=== PATIENT | male | born 1945 | race Two or more races ===

== ENCOUNTER 2022-11-27 21:02 | Emergency (ER) | payer BC ==
[~2022-11-27] VITALS: Ht 182.9 cm; Wt 94.5 kg
[2022-11-27] MEDS ORDERED: cefTRIAXone SOD 1,000 MG VL IM ONE (22:30)
[2022-11-27] MEDS ORDERED: CLIN300C8 PO (23:10)
[2022-11-27] MEDS ORDERED: LIDOCAINE 1% HCL (LOCAL ANESTH.) INJ 20ML MDV ONE (23:18)
[2022-11-27 23:24] VITALS: BP 154/87
== END 2022-11-27 23:45 | disposition home or self-care (01) ==
LOC: ER 21:02
DX: L03.115 Cellulitis of right lower limb (principal)
CPT/HCPCS: 96372; 99283; J0696; J2001

== ENCOUNTER 2022-11-30 10:29 | Emergency (ER) | payer BC ==
[~2022-11-30] VITALS: Ht 180.3 cm; Wt 94.5 kg
[~2022-11-30 10:29] MED LIST: CLIN300C8 PO
[2022-11-30 12:55] LABS: Basophils # (auto) 0 10 ^3/uL (0-0.2); Basophils % (auto) 0.3 % (0.0-2.0); Eosinophils # (auto) 0.1 10 ^3/uL (0-0.8); Eosinophils % (auto) 1.3 % (0.0-7.0); Hematocrit 40.7 % (41.0-53.0); Hemoglobin 13.7 g/dL (13.5-17.5); Lymphocytes # (auto) 1.7 10 ^3/uL (0.4-5.4); Lymphocytes % (auto) 26.6 % (10.0-50.0); Mean Corpuscular Hemoglobin 31.2 pg (28.0-32.0); Mean Corpuscular Hgb Conc. 33.7 g/dL (32.0-36.0); Mean Corpuscular Volume 92.6 fL (80.0-100.0); Monocytes # (auto) 0.6 10 ^3/uL (0-1.3); Monocytes % (auto) 9.7 % (0.0-12.0); Neutrophils % (auto) 62.1 % (37.0-80.0); Red Cell Distribution Width 13.8 % (11.8-14.3); White Blood Cell 6.4 10^3/uL (4.4-10.8)
[2022-11-30 13:48] LABS: Potassium 4.6 mmol/L (3.5-5.1)
[2022-11-30 13:56] LABS: Bilirubin, Total 0.4 mg/dL (0.2-1.0); CRP High Sensitivity 0.23 mg/dL (< 0.3); Calcium 9.1 mg/dL (8.5-10.1); Total Protein 7.3 g/dL (6.4-8.2)
[2022-11-30] MEDS ORDERED: DexAMETHasone SOD PHOS 10MG/1ML VIAL INJ IV ONE (14:45)
[2022-11-30] MEDS ORDERED: CEPH-510 PO (14:57)
[2022-11-30 15:37] VITALS: BP 137/77
== END 2022-11-30 15:44 | disposition home or self-care (01) ==
LOC: ER 10:29
DX: L03.115 Cellulitis of right lower limb (principal)
CPT/HCPCS: 36415; 73610; 73630; 80053; 85025; 85652; 86141; 87040; 96374; 99284; J1100

== ENCOUNTER 2024-06-04 06:55 | Day surgery (SDC) | payer OTHER ==
[2024-06-04] VITALS (10 sets, daily range): BP systolic 93–130; BP diastolic 48–93; PULSE 78–84; RESP 11–17; TEMP 97.2; O2SAT 93–98
[~2024-06-04] VITALS: Ht 182.9 cm; Wt 90.7 kg
[~2024-06-04 06:55] MED LIST changes: +ATOR20TA50 PO; -CLIN300C8 PO; +FINA5TAB4 PO; +GABA-1250 PO; +IBUP-1454 PO; +LISI20TA56 PO; +MELA1TAB25 PO; +ROPI5TAB20 PO; +TAMS0.4C39 PO
[2024-06-04] MEDS ORDERED: IODIXANOL 320MG/ML 100ML BTL IV ONE ×2 (07:23→07:42)
[2024-06-04] MEDS ORDERED: VERAPAMIL 2.5MG/ML INJ 2ML VIAL IV ONE (08:52)
[2024-06-04] MEDS ORDERED: HEPARIN SODIUM (PORCINE) 5000 UNITS/ML 1ML VIAL ONE (08:52)
[2024-06-04] MEDS ORDERED: fentaNYL CITRATE 100 MCG/2 ML VL ONE (08:52)
[2024-06-04] MEDS ORDERED: ANGIOMAX 250 MG VIAL IV ONE (08:52)
[2024-06-04] MEDS ORDERED: MIDAZOLAM HCL 2MG/2ML 2ml VIAL (1mg/ml) ONE (08:53)
[2024-06-04] MEDS ORDERED: LIDOCAINE 2%HCL (LOCAL ANESTH.) INJ 20ML MDV ONE (08:53)
[2024-06-04] MEDS ORDERED: SODIUM CHL 0.9% 0 ML ONE (08:53)
== END 2024-06-04 12:35 | disposition home or self-care (01) ==
LOC: CATH 06:55
PROVIDERS: ATTEND Internal Medicine
DX: R94.39 Abnormal result of other cardiovascular function study (principal); I25.118 Atherosclerotic heart disease of native coronary artery with other forms of angina pectoris; I25.82 Chronic total occlusion of coronary artery; R00.0 Tachycardia, unspecified; I25.119 Atherosclerotic heart disease of native coronary artery with unspecified angina pectoris
CPT/HCPCS: 93458; C1769; C1894; J1644; J2250; J3010; Q9967; 99152

== ENCOUNTER 2024-10-24 08:06 | Inpatient (IN) | payer OTHER ==
[~2024-10-24] VITALS: Ht 182.9 cm; Wt 78.0 kg
[2024-10-24 08:37] VITALS: PULSE 114; RESP 18; O2SAT 89
[2024-10-24 08:58] LABS: Hematocrit 35.9 % (41.0-53.0); Hemoglobin 12.6 g/dL (13.5-17.5); Mean Corpuscular Hemoglobin 32.2 pg (28.0-32.0); Mean Corpuscular Hgb Conc. 35.2 g/dL (32.0-36.0); Mean Corpuscular Volume 91.2 fL (80.0-100.0); Platelet Count (auto) 166 10^3/uL (140-450); Red Blood Cells 3.93 10^6/uL (4.5-5.90); Red Cell Distribution Width 14.2 % (11.8-14.3); White Blood Cell 2.4 10^3/uL (4.4-10.8)
--- NOTE | 2024-10-24 09:02 | ED.PDOC ---
History of Present Illness HPI Comments 79M BIBA w/ no prior Hx associated to the c/c of /D. Pt reports on having /D for 4 days and cough, w/ each day having to use the restroom 6 times. Pt notes that the /D is watery. EMS note that the pt informed them that he was recently diagnosed w/ left bundle branch block. PMHx of High Lipids, HTN, Baby Aspirin. SHx of Appendectomy and Tonsillectomy. Denies chills, fever, N/V, Blood, SOB and CP or no other associated symptom's, modifiers, recent injuries or sick contact at this time. Chief Complaint: General Weakness Time Seen by MD: 08:25 Primary Care Provider: Kira Davenport Notes: Nurses Notes, Rack Pusher Notes, Medications, Allergies Allergies: Coded Allergies: NO KNOWN ALLERGIES (Unverified , 05/30/24) Home Meds Reported Medications Melatonin (Melatonin) 10 Mg Tab, 10 MG PO DAILY for INSOMNIA, TAB 05/30/24 Ibuprofen (Ibuprofen) 600 Mg Tab, 600 MG PO PRN for ACHY LEGS, MG 0 Refills 05/30/24 Finasteride (Finasteride) 5 Mg Tab, 5 MG PO DAILY for BPH, MG 05/30/24 Tamsulosin Hcl (Tamsulosin Hcl) 0.4 Mg Cap, 0.4 MG PO QPM for BPH for 30 Days, MG 05/30/24 Gabapentin (Gabapentin) 300 Mg Cap, 300 MG PO DAILY for NEUROPATHY, MG 05/30/24 Ropinirole Hydrochloride (Ropinirole Hcl) 0.25 Mg Tab, 0.25 MG PO TID for RESTLESS LEGS, TAB 05/30/24 Lisinopril (Lisinopril) 20 Mg Tab, 20 MG PO DAILY for HTN for 30 Days, MG 05/30/24 Atorvastatin Calcium (ATORVASTATIN CALCIUM) 20 Mg Tab, 1 TAB PO DAILY for HIGH CHOLESTEROL, #30 TAB 5 Refills 05/30/24 Information Source: Patient, Emergency Med Personnel Mode of Arrival: EMS Severity: Moderate Timing: Days Duration: Since onset, Days Prehospital treatment: None Past Medical History PAST MEDICAL HISTORY: High Lipids, HTN Past Medical History (Other): Baby Aspirin Surgical History: Appendectomy, Tonsillectomy Family History Family History: Reviewed,noncontributory to illness, Unknown Social History Smoker: Non-Smoker Alcohol: Denies ETOH Use Drugs: Denies Drug Use Lives In: Home Constitutional: denies: chills, diaphoresis, fatigue, fever, malaise, sweats, weakness, others EENTM: denies: blurred vision, double vision, ear bleeding, ear discharge, ear drainage, ear pain, ear ringing, eye pain, eye redness, hearing loss, mouth pain, mouth swelling, nasal discharge, nose bleeding, nose congestion, nose pain, photophobia, tearing, throat pain, throat swelling, voice changes, others Respiratory: denies: cough, hemoptysis, orthopnea, SOB at rest, shortness of breath, SOB with excertion, stridor, wheezing, others Cardiovascular: denies: chest pain, dizzy spells, diaphoresis, Dyspnea on exertion, edema, irregular heart beat, left arm pain, lightheadedness, palpitations, PND, syncope, others Gastrointestinal: reports: diarrhea; denies: abdomen distended, abdominal pain, blood streaked bowels, constipated, dysphagia, difficulty swallowing, hematemesis, melena, nausea, poor appetite, poor fluid intake, rectal bleeding, rectal pain, vomiting, others Genitourinary: denies: burning, dysuria, flank pain, frequency, hematuria, incontinence, penile discharge, penile sore, pain, testicle pain, testicle swelling, urgency, others Neurological: denies: dizziness, fainting, headache, left sided numbness, left sided weakness, numbness, paresthesia, pre-existing deficit, right sided numbness, right sided weakness, seizure, speech problems, tingling, tremors, weakness, others Musculoskeletal: denies: back pain, gout, joint pain, joint swelling, muscle pain, muscle stiffness, neck pain, others Integumetry: denies: bruises, change in color, change in hair/nails, dryness, laceration, lesions, lumps, rash, wounds, others Allergic/Immunocompromised: denies: Difficulty Healing, Frequent Infections, Hi ves, Itching, others Hematologic/Lymphatic: denies: anemia, blood clots, easy bleeding, easy bruising, swollen glands, others Endocrine: denies: excessive hunger, excessive sweating, excessive thirst, excessive urination, flushing, intolerance to cold, intolerance to heat, unexplained weight gain, unexplained weight loss, others Psychiatric: denies: anxiety, bipolar disorder, depression, hopeless, panic disorder, schizophrenia, sleepless, suicidal, others All Other Systems: Reviewed and Negative Physical Exam General Appearance: Moderate Distress, Normal HEENT: Normal ENT Inspection, Pharynx Normal, TMs Normal Neck: Full Range of Motion, Non-Tender, Normal, Normal Inspection Respiratory: Chest Non-Tender, Lungs Clear, No Accessory Muscle Use, No Respiratory Distress, Normal Breath Sounds Cardiovascular: No Edema, No JVD, No Murmur, No Gallop, Normal Peripheral Pulses, Regular Rate/Rhythm Breast Exam: Deferred Gastrointestinal: Distended, No Organomegaly, Non Tender, No Pulsatile Mass, Normal Bowel Sounds, Soft Genitalia: Deferred Pelvic: Deferred Rectal: Deferred Extremities: No calf tenderness, Normal capillary refill, Normal inspection, Normal range of motion, Non-tender, No pedal edema Musculoskeletal : Apperance: Normal Neurologic: Alert, diagnostic technologist II-XII nml as Tested, No Motor Deficits, Normal Affect, Normal Mood, No Sensory Deficits Cerebellar Function: NOT DONE Reflexes: NOT DONE Skin: Dry, Normal Color, Warm Peripheral Pulses: 3+ Radial (R), 3+ Radial (L) Lymphatic: No Adenopathy Was a procedure done? Was a procedure done?: No Differential Dx Considerations may include: Gastroenteritis Electrolyte imbalance X-Ray, Labs, Meds, VS Vital Signs Date Time Temp Pulse Resp B/P (MAP) Pulse Ox O2 Delivery O2 Flow Rate FiO2 10/24/24 13:00 98 10 108/61 (77) 96 10/24/24 12:00 97.9 100 11 92/33 (52) 97 97.9 10/24/24 12:00 99 10/24/24 09:18 104 10/24/24 08:37 114 18 89 Room Air* 0 21 10/24/24 08:37 98.4 114 20 86/53 (64) 91 98.4 10/24/24 08:15 121 10/24/24 08:14 99.0 120 24 140/67 (91) 94 Lab Test 10/24/24 12:50 10/24/24 08:45 Range/Units Lactic Acid Level 1.3 0.4-2.0 mmol/L White Blood Count 2.4 L 4.4-10.8 10^3/uL Red Blood Count 3.93 L 4.5-5.90 10^6/uL Hemoglobin 12.6 L 13.5-17.5 g/dL Hematocrit 35.9 L 41.0-53.0 % Mean Corpuscular Volume 91.2 80.0-100.0 fL Mean Corpuscular Hemoglobin 32.2 H 28.0-32.0 pg Mean Corpuscular Hemoglobin Concent 35.2 32.0-36.0 g/dL Red Cell Distribution Width 14.2 11.8-14.3 % Platelet Count 166 140-450 10^3/uL Mean Platelet Volume 7.8 6.9-10.8 fL Neutrophils (%) (Auto) 37.0-80.0 % Lymphocytes (%) (Auto) 10.0-50.0 % Monocytes (%) (Auto) 0.0-12.0 % Basophils (%) (Auto) 0.0-2.0 % Neutrophils # (Auto) 1.6-8.6 10 ^3/uL Lymphocytes # (Auto) 0.4-5.4 10 ^3/uL Monocytes # (Auto) 0-1.3 10 ^3/uL Differential Total Cells Counted 100.0 100 Neutrophils % (Manual) 33 L 37.0-80.0 Band Neutrophils % (Manual) 0 Lymphocytes % (Manual) 19 10.0-50.0 Monocytes % (Manual) 40 H 0-12 Eosinophils % (Manual) 1 0-7 Basophils % (Manual) 0 0.0-2.0 Metamyelocytes % (manual) 0 Myelocytes % (Manual) 0 Promyelocytes % (Manual) 0 Blast Cells % (Manual) 7 Reactive Lymphocytes 0 Platelet Estimate Adequate Sodium Level 136 136-145 mmol/L Potassium Level 4.1 3.5-5.1 mmol/L Chloride Level 102 98-107 mmol/L Carbon Dioxide Level 23 20-31 mmol/L Anion Gap 11 5-15 Blood Urea Nitrogen 24 H 9-23 mg/dL Creatinine 0.89 0.700-1.30 mg/dL Glomerular Filtration Rate Calc 87 >90 mL/min BUN/Creatinine Ratio 27.0 H 10.0-20.0 Serum Glucose 131 H 74-106 mg/dL Calcium Level 9.9 8.7-10.4 mg/dL Current Medications Medications (Trade) Dose Ordered Sig/Kristin Route Start Time Stop Time Status Last Admin Sodium Chloride 1,000 ml @ 1,000 mls/hr Q1H ONCE IV 10/24/24 08:45 10/24/24 09:44 DC 10/24/24 09:53 Ceftriaxone Sodium 50 ml @ 100 mls/hr ONCE ONCE IV 10/24/24 12:15 10/24/24 12:44 DC 10/24/24 12:42 Azithromycin 250 ml @ 125 mls/hr ONCE ONCE IV 10/24/24 12:15 10/24/24 14:14 DC 10/24/24 12:42 Sodium Chloride 1,000 ml @ 1,000 mls/hr Q1H ONCE IV 10/24/24 12:15 10/24/24 13:14 DC 10/24/24 12:42 Sodium Chloride 1,000 ml @ 150 mls/hr Q6H40M ONCE IV 10/24/24 12:15 10/24/24 18:54 10/24/24 13:02 Patient alert. Complaining of abdominal discomfort along with diarrhea. CT scan of the abdomen reviewed does show ileus. Vitals stable. Answering all questions. Was given Rocephin. Was given azithromycin. Blood pressure was low. Was given fluids. Was given Flagyl. Abdomen is soft. Spoke with hospitalist. Explained to the patient. Continue to monitor. EKG does show left bundle branch block. Time of 1ST Reevaluation: 08:55 Reevaluation 1ST: Unchanged Patient Education/Counseling: Diagnosis, Treatment, Prognosis Family Education/Counseling: No Family Present Departure 1 Departure Time of Disposition: 17:12 Impression: Primary Impression: Diarrhea Qualified Codes: R19.7 - Diarrhea, unspecified Additional Impressions: Ileus Left bundle branch block Disposition: ADMITTED INPATIENT Admit to: Med Surg Condition: Guarded Critical Care Note Critical Care Time?: No Stability Stability form required: No Heart Score Heart Score: Heart Score Response (Comments) Value History Slightly Suspicious 0 EKG Normal 0 Age >65 2 Risk Factors >3 or Hx ASHD 2 Troponin Normal limit 0 Total 4 I personally scribed for SANGEETHA MCGINNIS MD ([email or web address]) on 10/24/24 at 09:02. Electronically submitted by Farhad Ramos ([email or web address]). SANGEETHA MCGINNIS MD Oct 24, 2024 09:02
[2024-10-24 09:04] LABS: Chloride 102 mmol/L (98-107); Potassium 4.1 mmol/L (3.5-5.1); Sodium 136 mmol/L (136-145)
[2024-10-24 09:05] LABS: Anion Gap 11 (5-15); Carbon Dioxide 23 mmol/L (20-31)
[2024-10-24 09:06] LABS: Calcium 9.9 mg/dL (8.7-10.4)
[2024-10-24 09:07] LABS: Band Neutrophils % (manual) 0; Basophils % (manual) 0 (0.0-2.0); Metamyelocytes % 0; Myelocytes % 0; Promyelocytes % 0; Reactive Lymphocytes 0
[2024-10-24 09:12] LABS: Blood Urea Nitrogen 24 mg/dL (9-23); Glucose 131 mg/dL (74-106)
--- NOTE | 2024-10-24 09:19 | ECG ---
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
[2024-10-24 09:30] LABS: Blast Cells 7; Eosinophils % (manual) 1 (0-7); Lymphocytes % (manual) 19 (10.0-50.0); Monocytes % (manual) 40 (0-12); Platelet Estimate Adequate
[2024-10-24] MEDS: SODIUM CHLORIDE 0.9% 1,000 ML IV ONE ×3 (09:53→13:02)
--- NOTE | 2024-10-24 09:53 | DVH ---
Procedure: CT CT AB PEL WO CON-NO ORAL OR IV 10/24/2024 08:58 AM Indication: distended Comparison Study: None Technique: Axial images were obtained and reformatted in coronal and sagittal planes. All CT scans at this medical facility are performed using dose modulation techniques as appropriate to a performed e xam including the following: Automated exposure control was utilized; adjustment of the MA and/or KV according to patient size; and use of iterative reconstruction technique. CT Dose: CTDI volume is 19. 46 mGy. Dose-length product is 1266.94 mGy*cm FINDINGS: Lower Chest: Bibasilar subsegmental atelectasis is noted. Hepatobiliary: A 1 cm cyst is seen in the liver. Hepatic steatosis. No intrahepatic or extrahepatic d uctal dilatation. No calcified gallstone. No gallbladder wall thickening. Spleen: Unremarkable. Pancreas: Unremarkable. Adrenal Glands: Unremarkable. tract: The kidneys are normal in size bilaterally without hydronephrosis or nephrolithiasis. The u rinary bladder is unremarkable. GI tract: The stomach is grossly normal in appearance. Distended proximal small bowel loops measuring up to 3.8 cm in caliber with no transition point identified. Scattered colonic diverticula are noted without evidence of diverticulitis. The appendix is not visualized. No inflammatory change is noted in the right lower quadrant. Lymphatics: No mesenteric, retroperitoneal or periportal lymphadenopathy. Vasculature: The abdominal aorta is normal in caliber. Diffuse calcified plaque formation is noted. Pelvic Organs: Unremarkable Bones/soft tissues: No acute abnormality. Degenerative changes of the lumbar spine noted. Small fat-c ontaining umbilical hernia. Other: None. IMPRESSION: 1. Dilated jejunal loops without mural thickening with no definite transition point that may represen t ileus or developing obstruction. Recommend clinical and biochemical correlation if clinically indic ated further evaluation with small-bowel series with the water-soluble contrast.Hepatic steatosis. 2. Small right hepatic lobe cyst.
[2024-10-24] MEDS: AZITHROMYCIN 500MG/ 250ML 250 ML IV ONE (12:42)
[2024-10-24] MEDS: cefTRIAXone 1GM/50ML D5W 50 ML IV ONE (12:42)
[2024-10-24] MEDS ORDERED: NITROGLYCERIN 0.4 MG SL TAB SL PRN (13:30)
[2024-10-24] MEDS ORDERED: MORPHINE SULFATE INJ 2 MG/ml SYRG IV PRN (13:30)
[2024-10-24] MEDS ORDERED: ONDANSETRON HCL 4 MG/2 ML VIAL IV PRN (13:30)
--- NOTE | 2024-10-24 13:34 | DVHHP2 ---
History of Present Illness Reason for Visit: Generalized weakness and Diarrhea History of Present Illness 79M BIBA w/ no prior Hx associated to the c/c of /D. Pt reports on having /D for 4 days and cough, w/ each day having to use the restroom 6 times. Pt notes that the /D is watery. EMS note that the pt informed them that he was recently diagnosed w/ left bundle branch block. PMHx of High Lipids, HTN, Baby Aspirin. SHx of Appendectomy and Tonsillectomy. Denies chills, fever, N/V, Blood, SOB and CP or no other associated symptom's, modifiers, recent injuries or sick contact at this time. In the ER he was noted to be hypotensive with a tachycardia. He was also noted to be leukopenic. Patient received fluids however blood pressure remained low normal range. Therefore he is being admitted to the hospital for further evaluation management of his diarrhea with the hypotension and tachycardia. Patient denies any hematemesis or hematochezia. No recent travel. No recent antibiotic use. His other review of systems reviewed normal. Past Medical History High Lipids, HTN and BPH Past Surgical History Appendectomy, Tonsillectomy Family History: Hyperlipidemia, Hypertension Smoke: No ALCOHOL: rare Lives: with Family Review of Systems Review of Systems No hematochezia or hematemesis. No fevers chills or sweats. No headache. No chest pain or shortness for breath. Other review of systems reviewed normal. Allergies: Coded Allergies: NO KNOWN ALLERGIES (Unverified , 05/30/24) Medications Current Medications Medications Dose Ordered Sig/Kristin Route Start Time Stop Time Status Last Admin Dose Admin Nitroglycerin 0.4 mg Q5MINP PRN SL 10/24/24 13:30 UNV Morphine Sulfate 2 mg Q30M PRN IV 10/24/24 13:30 UNV Sodium Chloride 1,000 ml @ 125 mls/hr Q8H IV 10/24/24 13:30 UNV Ceftriaxone Sodium 50 ml @ 100 mls/hr DAILY@09 IV 10/25/24 09:00 UNV Metronidazole 100 ml @ 100 mls/hr Q8HR IV 10/24/24 14:00 UNV Ondansetron HCl 4 mg Q4HPRN PRN IV 10/24/24 13:30 UNV Famotidine 20 mg Q12HR IV 10/24/24 22:00 UNV Exam Vital Signs Vital Signs Date Time Temp Pulse Resp B/P (MAP) Pulse Ox O2 Delivery O2 Flow Rate FiO2 10/24/24 13:00 98 10 108/61 (77) 96 10/24/24 12:00 97.9 97.9 10/24/24 08:37 Room Air* 0 21 Exam Elderly gentleman comfortable lying in bed without any acute distress. HEENT neck supple no JVD pupils equal round reactive to light. Heart regular rate and rhythm mild tachycardia S1 plus S2 without murmurs. Lungs fair air movement chest tube will expansion. No audible wheezes or rales. Abdomen is distended, tympanic to palpation. Positive active bowel sounds. No rebound or guarding noted. Nontender to palpation. Extremities no edema. Positive distal pedal pulses. Labs/Xrays Labs Test 10/24/24 12:50 10/24/24 08:45 Range/Units White Blood Count 2.4 L 4.4-10.8 10^3/uL Red Blood Count 3.93 L 4.5-5.90 10^6/uL Hemoglobin 12.6 L 13.5-17.5 g/dL Hematocrit 35.9 L 41.0-53.0 % Mean Corpuscular Volume 91.2 80.0-100.0 fL Mean Corpuscular Hemoglobin 32.2 H 28.0-32.0 pg Mean Corpuscular Hemoglobin Concent 35.2 32.0-36.0 g/dL Red Cell Distribution Width 14.2 11.8-14.3 % Platelet Count 166 140-450 10^3/uL Mean Platelet Volume 7.8 6.9-10.8 fL Neutrophils (%) (Auto) 37.0-80.0 % Lymphocytes (%) (Auto) 10.0-50.0 % Monocytes (%) (Auto) 0.0-12.0 % Basophils (%) (Auto) 0.0-2.0 % Neutrophils # (Auto) 1.6-8.6 10 ^3/uL Lymphocytes # (Auto) 0.4-5.4 10 ^3/uL Monocytes # (Auto) 0-1.3 10 ^3/uL Differential Total Cells Counted 100.0 100 Neutrophils % (Manual) 33 L 37.0-80.0 Band Neutrophils % (Manual) 0 Lymphocytes % (Manual) 19 10.0-50.0 Monocytes % (Manual) 40 H 0-12 Eosinophils % (Manual) 1 0-7 Basophils % (Manual) 0 0.0-2.0 Metamyelocytes % (manual) 0 Myelocytes % (Manual) 0 Promyelocytes % (Manual) 0 Blast Cells % (Manual) 7 Reactive Lymphocytes 0 Platelet Estimate Adequate Sodium Level 136 136-145 mmol/L Potassium Level 4.1 3.5-5.1 mmol/L Chloride Level 102 98-107 mmol/L Carbon Dioxide Level 23 20-31 mmol/L Anion Gap 11 5-15 Blood Urea Nitrogen 24 H 9-23 mg/dL Creatinine 0.89 0.700-1.30 mg/dL Glomerular Filtration Rate Calc 87 >90 mL/min BUN/Creatinine Ratio 27.0 H 10.0-20.0 Serum Glucose 131 H 74-106 mg/dL Calcium Level 9.9 8.7-10.4 mg/dL Assessment/Plan Assessment/Plan Acute gastroenteritis versus colitis. diarrhea rule out infectious etiology Dehydration Hypotension secondary to diarrhea BPH Hypertension Continue IV fluids. We will send stool for stool cultures and C diff. Start h im on empiric IV antibiotics. Follow the labs. Hold blood pressure medications given low normal blood pressure. Pain and nausea medications. Supportive care and treatment. Resume his prostate medications. Otherwise continue rest of supportive care and treatment. His further clinical management per clinical course and pending evaluations and study results. Plan discussed with: Patient, Other My Orders Orders - SERGEI GAMBLE MD Procedure Category Date Status Time Admit ADMIT 10/24/24 Transmitted 13:29 Clear Liq Diet DIET 10/24/24 Transmitted Lunch Comprehensive LAB 10/25/24 Verified Metabolic Panel 04:00 Complete Blood Count LAB 10/25/24 Verified 04:00 Nitroglycerin PHA 10/24/24 Logged Sublingual (Ntrostat 13:30 Morphine Sulfate PHA 10/24/24 Logged Injection 13:30 Stat Ekg For Chest JOLIE 10/24/24 In Process Pain 13:29 Notify Of Changes JOLIE 10/24/24 In Process From Base 13:29 Sales Market Leader For JOLIE 10/24/24 In Process 24 Hours 13:29 Emergency Dysrhythmia JOLIE 10/24/24 In Process Protocol 13:29 Rhythm Strips Once JOLIE 10/24/24 In Process Every Shift 13:29 Oxygen By Nasal RT 10/24/24 Transmitted Cannula 13:29 NS PHA 10/24/24 Transmitted 13:30 Ceftriaxone Ivpb PHA 10/25/24 Transmitted Rocephin 09:00 Metronidazole Ivpb PHA 10/24/24 Transmitted Flagyl 14:00 Ondansetron Hcl PHA 10/24/24 Transmitted (Zofran) 13:30 Famotidine Injection PHA 10/24/24 Transmitted (Pepcid Injection) 22:00 Finasteride Tablet PHA 10/25/24 Transmitted (Proscar Tablet) 10:00 Tamsulosin PHA 10/24/24 Transmitted Hydrochloride (Flomax) 18:00 Stool Bacterial PINA 10/24/24 Verified Culture 13:31 Stool Wbc LAB 10/24/24 Verified 13:31 Clostridium Difficile PINA 10/24/24 Verified Toxin 13:31 SERGEI GAMBLE MD Oct 24, 2024 13:34
--- NOTE | 2024-10-24 14:06 | ECG ---
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
[2024-10-24] MEDS: metroNIDAZOLE 500MG/100ML 100 ML IV ONE (16:15)
[2024-10-24] MEDS: SODIUM CHLORIDE 0.9% 1,000 ML IV SCH (16:15)
[2024-10-24] MEDS: metroNIDAZOLE 500MG/100ML 100 ML IV SCH (16:15)
[2024-10-24] MEDS: TAMSULOSIN HYDROCHLORIDE 0.4 MG CAP PO SCH (18:22)
--- NOTE | 2024-10-24 19:59 | DVHINCON2 ---
GASTROENTEROLOGY CONSULTATION REASON FOR CONSULTATION: Evaluation of severe diarrhea. HISTORY OF PRESENT ILLNESS: The patient is a 79-year-old male with past medical history significant for hypertension, hyperlipidemia and microscopic colitis, admitted for evaluation of severe diarrhea and dehydration. The patient also reports having 4 days of cough and watery diarrhea. At the time of his presentation, he was also found to be very hypotensive and tachycardic as well as leukopenic. Laboratory evaluation revealed a white blood cell count 2.4, hemoglobin 12.6, hematocrit 35.9 and platelet count of 166,000. Basic metabolic panel was relevant for a BUN of 24 with a serum creatinine of 0.89. Diagnostic CT of the abdomen and pelvis on admission showed dilated jejunal loops without mural thickening with no definite transition point that may represent ileus developing obstruction. The patient states he has been having multiple episodes of loose watery bowel movements. It also associated with some abdominal pain. The patient is well known to us as he was seen in the outpatient setting back in 06/2023. The patient was treated for microscopic colitis in 2020 with oral budesonide therapy. The patient stated he did have some budesonide at home, but the medication was . Gastroenterology service has been asked for input regarding his symptoms. DRUG ALLERGIES: None. HOME MEDICATIONS: Gabapentin, atorvastatin, lisinopril, and ropinirole. PAST MEDICAL HISTORY: Hypertension, hyperlipidemia, microscopic colitis diagnosed in 2020, hyperlipidemia, recent diagnosis of left bundle branch block. PAST SURGICAL HISTORY: He has had a colonoscopy in 2005, colonoscopy in 2020, appendectomy, tonsillectomy. FAMILY HISTORY: Noncontributory. SOCIAL HISTORY: The patient denies drugs, alcohol, tobacco. REVIEW OF SYSTEMS: A 12-point review of system is limited, but as stated in HPI. PHYSICAL EXAMINATION: VITAL SIGNS: Temperature is 97.9, heart rate 98, respirations 10, blood pressure 108/61, O2 saturation 96% on room air. GENERAL: This is a 79-year-old male who is in no acute distress, afebrile. Alert and oriented x 3. HEENT: Unremarkable. CARDIOVASCULAR: Regular rhythm. RESPIRATORY: Clear to auscultation. GASTROINTESTINAL: Soft, nontender, nondistended. EXTREMITIES: No clubbing, cyanosis or edema. LABORATORY DATA: Basic metabolic panel within normal limits. CBC shows a white blood cell count 2.4, hemoglobin 12.6, hematocrit 35.9, MCV 91.2, platelet count of 166,000. ASSESSMENT AND RECOMMENDATIONS: * Profuse diarrhea, likely secondary to exacerbation of microscopic colitis. We will need to rule out any infectious etiology. If the stool cultures remain negative, the patient has persistent loose stools. I would recommend starting the patient on budesonide 9 mg once daily with a long taper over the next 6 to 8 weeks. Outpatient follow up with GI. * Aggressive IV fluid hydration. * Hematology evaluation. * Cardiac evaluation. * No indication for diagnostic colonoscopy at this time. * Further recommendations based on hospital course. DO BENSON Connors TID: [id number] RECEIPT: [id number]
[2024-10-24 20:13] VITALS: PULSE 114; RESP 20; O2SAT 96
[2024-10-24] MEDS: FAMOTIDINE (10MG/ML) 2ML VL IV SCH (21:55)
[2024-10-24] MEDS: METOPROLOL TARTRATE 1MG/1ML-5ML VIAL IV PRN (21:55)
[2024-10-24] MEDS: LORazepam 0.5 MG TAB PO PRN (21:55)
[2024-10-24] MEDS: dilTIAZem 25 MG/5 ML VIAL IV ONE (23:15)
[2024-10-25] VITALS (9 sets, daily range): BP systolic 130–148; BP diastolic 71–94; PULSE 89–120; RESP 16–20; TEMP 97.7–98.5; O2SAT 95–97
[2024-10-25] MEDS ORDERED: METO25TA93 PO (03:10)
[2024-10-25] MEDS ORDERED: ATOR40TA52 (03:10)
[2024-10-25] MEDS ORDERED: CLOP75TA70 (03:10)
[2024-10-25] MEDS ORDERED: FIN5T PO (03:10)
[2024-10-25] MEDS ORDERED: ASPI81CH59 PO (03:10)
[2024-10-25] MEDS ORDERED: TAMS0.4C39 PO (03:11)
[2024-10-25 07:02] LABS: Hematocrit 33.8 % (41.0-53.0); Hemoglobin 12.1 g/dL (13.5-17.5); Mean Corpuscular Hemoglobin 32.9 pg (28.0-32.0); Mean Corpuscular Hgb Conc. 35.6 g/dL (32.0-36.0); Mean Corpuscular Volume 92.3 fL (80.0-100.0); Platelet Count (auto) 175 10^3/uL (140-450); Red Blood Cells 3.66 10^6/uL (4.5-5.90); Red Cell Distribution Width 14.1 % (11.8-14.3)
[2024-10-25 07:19] LABS: Band Neutrophils % (manual) 0; Basophils % (manual) 0 (0.0-2.0); Eosinophils % (manual) 0 (0-7); Metamyelocytes % 0; Myelocytes % 0; Promyelocytes % 0; Reactive Lymphocytes 0
[2024-10-25 07:54] LABS: Alanine Aminotransferase 31 U/L (7-40); Albumin 4.3 g/dL (3.2-4.8); Alkaline Phosphatase 54 U/L (46-116); Anion Gap 9 (5-15); BUN/Creatinine Ratio 26.4 (10.0-20.0); Bilirubin, Total 0.6 mg/dL (0.2-1.0); Blood Urea Nitrogen 19 mg/dL (9-23); Calcium 9.2 mg/dL (8.7-10.4); Carbon Dioxide 23 mmol/L (20-31); Chloride 106 mmol/L (98-107); Glucose 102 mg/dL (74-106); Potassium 4.2 mmol/L (3.5-5.1); Sodium 138 mmol/L (136-145); Total Protein 6.4 g/dL (5.7-8.2)
[2024-10-25 07:58] LABS: Aspartate Aminotransferase 59 U/L (13-40)
[2024-10-25 09:07] LABS: Blast Cells 5; Lymphocytes % (manual) 26 (10.0-50.0); Monocytes % (manual) 31 (0-12); Platelet Estimate Adequate
[2024-10-25] MEDS: cefTRIAXone 1GM/50ML D5W 50 ML IV SCH (10:02)
[2024-10-25] MEDS: FINASTERIDE 5 MG TAB PO SCH (10:02)
--- NOTE | 2024-10-25 10:25 | ECG ---
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
--- NOTE | 2024-10-25 14:42 | DVHPN2 ---
Progress Note - Dictate Date Seen: Oct 25, 2024 Medical Necessity Reason Pt with a Central, PICC or Fol: No Subjective Clinically feeling better. Diarrhea has resolved. Stool cultures are pending. Evaluated by director of digital platforms. Heart rate is tachycardic and no complaints vital signs Vital Sign Date Time Temp Pulse Resp B/P (MAP) Pulse Ox O2 Delivery O2 Flow Rate FiO2 10/25/24 13:00 97.7 120 16 130/87 (101) 95 97.7 10/25/24 08:30 Nasal Cannula* 2 28 Total Intake and Output 10/24/24 10/24/24 10/25/24 15:00 23:00 07:00 Intake Total 300 ml 1075 ml 230 ml Output Total 40 ml Balance 300 ml 1075 ml 190 ml medications Current Medications Medications Dose Ordered Sig/Kristin Route Start Time Stop Time Status Last Admin Dose Admin Nitroglycerin 0.4 mg Q5MINP PRN SL 10/24/24 13:30 Morphine Sulfate 2 mg Q30M PRN IV 10/24/24 13:30 Sodium Chloride 1,000 ml @ 125 mls/hr Q8H IV 10/24/24 13:30 10/24/24 16:15 125 MLS/HR Ceftriaxone Sodium 50 ml @ 100 mls/hr DAILY@09 IV 10/25/24 09:00 10/25/24 10:02 100 MLS/HR Metronidazole 100 ml @ 100 mls/hr Q8HR IV 10/24/24 14:00 10/25/24 05:57 100 MLS/HR Ondansetron HCl 4 mg Q4HPRN PRN IV 10/24/24 13:30 Finasteride 5 mg DAILY PO 10/25/24 10:00 10/25/24 10:02 5 MG Tamsulosin HCl 0.4 mg QPM PO 10/24/24 18:00 10/24/24 18:22 0.4 MG Metoprolol Tartrate 2.5 mg Q4HPRN PRN IV 10/24/24 21:15 10/24/24 21:55 2.5 MG Lorazepam 0.5 mg Q8HP PRN PO 10/24/24 21:15 10/24/24 21:55 0.5 MG Metoprolol Tartrate 25 mg BID PO 10/25/24 13:45 Aspirin 81 mg DAILY PO 10/26/24 10:00 objective Alert awake oriented x3. HEENT neck supple no JVD. Heart regular rate and rhythm S1 plus S2. Tachycardia. Lungs fair air movement without rales wheezes. Abdomen soft nontender positive bowel sounds. Extremities no edema. laboratory and microbiology Laboratory Tests 10/25/24 04:57 Test 10/25/24 04:57 Range/Units Serum Glucose 102 74-106 mg/dL Assessment/Plan Resume his home beta-chasidy for tachycardia. I will give a dose of IV digoxin if heart rate is above 120. Meantime continue current antibiotics for diarrhea. Wait for stool cultures results. DC his Stoll catheter. Continue rest of supportive care and treatment. Further clinical management per clinical course. Discussed with the patient and nurse regarding care plan. Problems(with codes): (1) Diarrhea (2) Ileus Dietary Evaluation Review Comments: DX: Diverticulitis, Diarrhea resolved. Encourage high fiber diet Expected Outcomes/Goals: Gradual wt loss Plan discussed with: Patient SERGEI GAMBLE MD Oct 25, 2024 14:42
--- NOTE | 2024-10-25 15:47 | DVHINCON2 ---
Family History: Patient reports no known family medical history. Allergies: Coded Allergies: NO KNOWN ALLERGIES (Unverified , 05/30/24) Home Meds Reported Medications Tamsulosin Hcl (Tamsulosin Hcl) 0.4 Mg Cap, 0.4 MG PO DAILY, CAP 10/25/24 Finasteride (Finasteride) 5 Mg Tab, 1 TAB PO DAILY 10/25/24 Aspirin (Aspirin Low Dose) 81 Mg Chw, 1 TAB PO DAILY 10/25/24 Clopidogrel Bisulfate (CLOPIDOGREL) 75 Mg Tab, 1 DAILY 10/25/24 Metoprolol Succinate (Metoprolol Succinate Er) 25 Mg Tab, 1 TAB PO DAILY 10/25/24 Atorvastatin Calcium (ATORVASTATIN CALCIUM) 40 Mg Tab, 1 DAILY 10/25/24 Ibuprofen (Ibuprofen) 600 Mg Tab, 600 MG PO PRN for ACHY LEGS, MG 0 Refills 05/30/24 Gabapentin (Gabapentin) 300 Mg Cap, 300 MG PO DAILY for NEUROPATHY, MG 05/30/24 Ropinirole Hydrochloride (Ropinirole Hcl) 0.25 Mg Tab, 0.25 MG PO TID for RESTLESS LEGS, TAB 05/30/24 Lisinopril (Lisinopril) 20 Mg Tab, 20 MG PO DAILY for HTN for 30 Days, MG 05/30/24 Discontinued Reported Medications Melatonin (Melatonin) 10 Mg Tab, 10 MG PO DAILY for INSOMNIA, TAB 05/30/24 Finasteride (Finasteride) 5 Mg Tab, 5 MG PO DAILY for BPH, MG 05/30/24 Tamsulosin Hcl (Tamsulosin Hcl) 0.4 Mg Cap, 0.4 MG PO QPM for BPH for 30 Days, MG 05/30/24 Atorvastatin Calcium (ATORVASTATIN CALCIUM) 20 Mg Tab, 1 TAB PO DAILY for HIGH CHOLESTEROL, #30 TAB 5 Refills 05/30/24 Current Medications Current Medications Medications (Trade) Dose Ordered Sig/Kristin Route PRN Reason Start Time Stop Time Status Last Admin Ceftriaxone Sodium 50 ml @ 100 mls/hr DAILY@09 IV 10/25/24 09:00 10/25/24 10:02 Famotidine (Pepcid Injection) 20 mg Q12HR IV 10/24/24 22:00 10/25/24 13:45 DC 10/25/24 10:02 Finasteride (Proscar Tablet) 5 mg DAILY PO 10/25/24 10:00 10/25/24 10:02 Tamsulosin HCl (Flomax) 0.4 mg QPM PO 10/24/24 18:00 10/24/24 18:22 Metoprolol Tartrate (Lopressor) 2.5 mg Q4HPRN PRN IV HR > 125 10/24/24 21:15 10/24/24 21:55 Lorazepam (Ativan Tablet) 0.5 mg Q8HP PRN PO ANXIETY 10/24/24 21:15 10/24/24 21:55 Metoprolol Tartrate (Lopressor Tablet) 25 mg BID PO 10/25/24 13:45 Aspirin (Ecotrin Enteric Coated Tablet) 81 mg DAILY PO 10/26/24 10:00 Vital Signs Vital Signs Date Time Temp Pulse Resp B/P (MAP) Pulse Ox O2 Delivery O2 Flow Rate FiO2 10/25/24 13:00 97.7 120 16 130/87 (101) 95 97.7 10/25/24 08:30 Nasal Cannula* 2 28 Labs/Diagnostic Data Labs Test 10/25/24 04:57 10/24/24 16:30 10/24/24 12:50 Range/Units White Blood Count 5.0 # 4.4-10.8 10^3/uL Red Blood Count 3.66 L 4.5-5.90 10^6/uL Hemoglobin 12.1 L 13.5-17.5 g/dL Hematocrit 33.8 L 41.0-53.0 % Mean Corpuscular Volume 92.3 80.0-100.0 fL Mean Corpuscular Hemoglobin 32.9 H 28.0-32.0 pg Mean Corpuscular Hemoglobin Concent 35.6 32.0-36.0 g/dL Red Cell Distribution Width 14.1 11.8-14.3 % Platelet Count 175 140-450 10^3/uL Mean Platelet Volume 8.2 6.9-10.8 fL Neutrophils (%) (Auto) 37.0-80.0 % Lymphocytes (%) (Auto) 10.0-50.0 % Monocytes (%) (Auto) 0.0-12.0 % Basophils (%) (Auto) 0.0-2.0 % Neutrophils # (Auto) 1.6-8.6 10 ^3/uL Lymphocytes # (Auto) 0.4-5.4 10 ^3/uL Monocytes # (Auto) 0-1.3 10 ^3/uL Differential Total Cells Counted 100.0 100 Neutrophils % (Manual) 38 37.0-80.0 Band Neutrophils % (Manual) 0 Lymphocytes % (Manual) 26 10.0-50.0 Monocytes % (Manual) 31 H 0-12 Eosinophils % (Manual) 0 0-7 Basophils % (Manual) 0 0.0-2.0 Metamyelocytes % (manual) 0 Myelocytes % (Manual) 0 Promyelocytes % (Manual) 0 Blast Cells % (Manual) 5 Reactive Lymphocytes 0 Platelet Estimate Adequate Sodium Level 138 136-145 mmol/L Potassium Level 4.2 3.5-5.1 mmol/L Chloride Level 106 98-107 mmol/L Carbon Dioxide Level 23 20-31 mmol/L Anion Gap 9 5-15 Blood Urea Nitrogen 19 9-23 mg/dL Creatinine 0.72 0.700-1.30 mg/dL Glomerular Filtration Rate Calc 93 >90 mL/min BUN/Creatinine Ratio 26.4 H 10.0-20.0 Serum Glucose 102 74-106 mg/dL Calcium Level 9.2 8.7-10.4 mg/dL Total Bilirubin 0.6 0.2-1.0 mg/dL Aspartate Amino Transferase (AST) 59 H 13-40 U/L Alanine Aminotransferase (ALT) 31 7-40 U/L Alkaline Phosphatase 54 46-116 U/L Total Protein 6.4 5.7-8.2 g/dL Albumin 4.3 3.2-4.8 g/dL Stool for White Cells None seen Lactic Acid Level 1.3 0.4-2.0 mmol/L Microbiology Date/Time Source Procedure Growth Status 10/24/24 16:30 Stool Stool Culture - Preliminary Resulted 10/24/24 16:30 Stool Shiga Toxin I & II - Final Resulted 10/24/24 16:30 Stool Clostridium difficile Toxin Assay Pending Resulted 10/24/24 12:50 Blood Blood Culture - Preliminary NO GROWTH AFTER 24 HOURS OF INCUBATION. Resulted MIA OTTO MD Oct 25, 2024 15:47
[2024-10-25] MEDS: METOPROLOL TARTRATE 25 MG TAB PO SCH (15:48)
[2024-10-26] VITALS (7 sets, daily range): BP systolic 142–184; BP diastolic 74–104; PULSE 85–100; RESP 16–17; TEMP 97.3–97.7; O2SAT 95–97
[2024-10-26] MEDS: ASPirin-EC 81 mg tab PO SCH (10:30)
[2024-10-26] MEDS ORDERED: METR-344 PO (13:21)
[2024-10-26] MEDS ORDERED: BUDE9TAB PO (13:21)
[2024-10-26] MEDS ORDERED: VANC125C3 PO (13:27)
--- NOTE | 2024-10-26 13:28 | DVHDS2 ---
Discharge Summary Date of Admission Oct 24, 2024 at 13:29 Date of Discharge: Oct 26, 2024 Labs/Diagnostic Data: Laboratory Results Test 10/25/24 04:57 10/24/24 16:30 10/24/24 12:50 White Blood Count 5.0 10^3/uL (4.4-10.8) Red Blood Count 3.66 10^6/uL (4.5-5.90) Hemoglobin 12.1 g/dL (13.5-17.5) Hematocrit 33.8 % (41.0-53.0) Mean Corpuscular Volume 92.3 fL (80.0-100.0) Mean Corpuscular Hemoglobin 32.9 pg (28.0-32.0) Mean Corpuscular Hemoglobin Concent 35.6 g/dL (32.0-36.0) Red Cell Distribution Width 14.1 % (11.8-14.3) Platelet Count 175 10^3/uL (140-450) Mean Platelet Volume 8.2 fL (6.9-10.8) Neutrophils (%) (Auto) % (37.0-80.0) Lymphocytes (%) (Auto) % (10.0-50.0) Monocytes (%) (Auto) % (0.0-12.0) Basophils (%) (Auto) % (0.0-2.0) Neutrophils # (Auto) 10 ^3/uL (1.6-8.6) Lymphocytes # (Auto) 10 ^3/uL (0.4-5.4) Monocytes # (Auto) 10 ^3/uL (0-1.3) Differential Total Cells Counted 100.0 (100) Neutrophils % (Manual) 38 (37.0-80.0) Band Neutrophils % (Manual) 0 Lymphocytes % (Manual) 26 (10.0-50.0) Monocytes % (Manual) 31 (0-12) Eosinophils % (Manual) 0 (0-7) Basophils % (Manual) 0 (0.0-2.0) Metamyelocytes % (manual) 0 Myelocytes % (Manual) 0 Promyelocytes % (Manual) 0 Blast Cells % (Manual) 5 Reactive Lymphocytes 0 Platelet Estimate Adequate Sodium Level 138 mmol/L (136-145) Potassium Level 4.2 mmol/L (3.5-5.1) Chloride Level 106 mmol/L (98-107) Carbon Dioxide Level 23 mmol/L (20-31) Anion Gap 9 (5-15) Blood Urea Nitrogen 19 mg/dL (9-23) Creatinine 0.72 mg/dL (0.700-1.30) Glomerular Filtration Rate Calc 93 mL/min (>90) BUN/Creatinine Ratio 26.4 (10.0-20.0) Serum Glucose 102 mg/dL (74-106) Calcium Level 9.2 mg/dL (8.7-10.4) Total Bilirubin 0.6 mg/dL (0.2-1.0) Aspartate Amino Transferase (AST) 59 U/L (13-40) Alanine Aminotransferase (ALT) 31 U/L (7-40) Alkaline Phosphatase 54 U/L (46-116) Total Protein 6.4 g/dL (5.7-8.2) Albumin 4.3 g/dL (3.2-4.8) Stool for White Cells None seen Lactic Acid Level 1.3 mmol/L (0.4-2.0) Other Laboratory Tests 10/25/24 04:57 Brief Hx & Hospital Course: 79M BIBA w/ no prior Hx associated to the c/c of /D. Pt reports on having /D for 4 days and cough, w/ each day having to use the restroom 6 times. Pt notes that the /D is watery. EMS note that the pt informed them that he was recently diagnosed w/ left bundle branch block. PMHx of High Lipids, HTN, Baby Aspirin. SHx of Appendectomy and Tonsillectomy. Denies chills, fever, N/V, Blood, SOB and CP or no other associated symptom's, modifiers, recent injuries or sick contact at this time. In the ER he was noted to be hypotensive with a tachycardia. He was also noted to be leukopenic. Patient received fluids however blood pressure remained low normal range. Therefore he is being admitted to the hospital for further evaluation management of his diarrhea with the hypotension and tachycardia. Patient denies any hematemesis or hematochezia. No recent travel. No recent antibiotic use. His other review of systems reviewed normal. He is admitted and evaluated by toy packer. His stool cultures came back positive for C diff colitis. Patient received empiric IV antibiotics and transitioned to oral vancomycin. While in the hospital his diarrhea has resolved. He is tolerating his diet. No abdominal pain. Clinically stable. Therefore I have talked with the patient at bedside on the day of discharge regarding his colitis infection and need for oral antibiotics outpatient basis. He is also advised to follow up with the toy packer for his colitis and further manage as deemed appropriate. Otherwise given patient is clinically stable it is felt he could be safely discharged home. Patient has verbalized understanding of his hospital diagnosis, treatment he received, discharge medications, discharge instructions and agree with the discharge follow-up plan of care. Condition at Discharge: Stable Final Diagnosis/Problems List Diarrhea, C difficile colitis Discharge Disposition: Home Discharge Instruct/Medications Diet: Consistent carbohydrate, Cardiac 2g Na,low cholest Activity: No Restrictions, As Tolerated Follow Up/Referral: IN 2-3 weeks with [facility]/GI for further evaluation of colitis and treatment Medications: As prescribed and home medications as you were taking. New Medications: Vancomycin HCl (Vancomycin HCl) 125 Mg Cap 125 MG PO Q6HWA, #40 CAP Continued Medications: Aspirin (Aspirin Low Dose) 81 Mg Chw 1 TAB PO DAILY Atorvastatin Calcium (Atorvastatin Calcium) 40 Mg Tab 1 DAILY Clopidogrel Bisulfate (Clopidogrel) 75 Mg Tab 1 DAILY Finasteride (Finasteride) 5 Mg Tab 1 TAB PO DAILY Gabapentin (Gabapentin) 300 Mg Cap 300 MG PO DAILY for NEUROPATHY, MG Ibuprofen (Ibuprofen) 600 Mg Tab 600 MG PO PRN for ACHY LEGS, MG 0 Refills Lisinopril (Lisinopril) 20 Mg Tab 20 MG PO DAILY for HTN for 30 Days, MG Metoprolol Succinate (Metoprolol Succinate Er) 25 Mg Tab 1 TAB PO DAILY Ropinirole Hydrochloride (Ropinirole Hcl) 0.25 Mg Tab 0.25 MG PO TID for RESTLESS LEGS, TAB Tamsulosin Hcl (Tamsulosin Hcl) 0.4 Mg Cap 0.4 MG PO DAILY, CAP Discharge Statement: "Patient was advised to return to the ER or call 911 if any headaches, dizziness, shortness of breath, chest pain, abdominal pain, bleeding, fevers, or worsening of medical condition. Patient was counseled about treatment plan, medications, possible side effects, patientverbalized understanding. All questions were answered to the best of my ability. This discharge took greater then 30 minutes in planning, reviewing documentation, counseling the patient, and discussing with other team members." ASSESSMENT ASSESSMENT Assessment Diarrhea, C difficile colitis GANAPAVARAPU,SERGEI MD Oct 26, 2024 13:28
== END 2024-10-26 15:47 | disposition home or self-care (01) | DRG 373 ==
LOC: EDBD 08:06 → ER 08:06 → OVERFLOW 13:29 → TELE-CENTR 23:56
PROVIDERS: ADMIT Hospitalist; ATTEND Hospitalist
DX: A04.72 Enterocolitis due to Clostridium difficile, not specified as recurrent (principal); I95.89 Other hypotension; N40.0 Benign prostatic hyperplasia without lower urinary tract symptoms; I10 Essential (primary) hypertension; I44.7 Left bundle-branch block, unspecified; E86.0 Dehydration; E78.5 Hyperlipidemia, unspecified; Z79.1 Long term (current) use of non-steroidal anti-inflammatories (NSAID); Z79.899 Other long term (current) drug therapy; Z82.49 Family history of ischemic heart disease and other diseases of the circulatory system
CPT/HCPCS: 36415; 74176; 80048; 80053; 83605; 85007; 85027; 85048; 87040; 87045; 87427; 87493; 93005; 96361; 96365; 96368; G0378; J3490